=== PATIENT | male | born 1995 | race African-American/Black ===

== ENCOUNTER 2016-08-31 10:18 | Emergency (ER) | payer SELFPAY ==
[~2016-08-31] VITALS: Ht 170.2 cm; Wt 80.6 kg
[~2016-08-31 10:18] MED LIST: ASCORBIC ACID500 M3 PO; DOCUSATE SODIU100 MG PO; FOLIC ACID1 MG PO; HYDROCODON-ACE1 EAC7 PO; PANTOPRAZOLE SO40 MG PO; SENNA8.6 MG PO; THERAGRAN1 TABLET PO; TRIPLE ANTIB28.35 GM TP
[2016-08-31 11:25] LABS: EOSINOPHIL (%) 2.8 % (0-5); EOSINOPHIL COUNT 0.1 K/uL (0-0.3); HEMATOCRIT 50.7 % (38.0-50.0); IMMATURE GRANULOCYTE (%) 0.2 % (0.0-0.7); INSTRUMENT ABS NEUTROPHIL CT 2.9 K/uL; LYMPHOCYTE COUNT 1.5 K/uL (1.0-2.8); MCHC 34.1 G/DL (30.0-36.0); MEAN PLAT.VOLUME 9.8 uM^3 (9.0-12.4); MONOCYTE (%) 9.7 % (3-12); MONOCYTE COUNT 0.5 K/uL (0-0.8); NEUTROPHIL (%) 56.9 % (45-76); NEUTROPHIL COUNT 2.9 K/uL (1.8-6.4); PLATELET COUNT 214 K/uL (156-360); RBC DIS.WIDTH-CV 12.4 % (11.8-14.6); RBC DIS.WIDTH-SD 40.3 % (39-53); RED BLOOD COUNT 5.76 M/uL (4.00-5.50); WHITE BLOOD COUNT 5.1 K/uL (4.1-10.2)
[2016-08-31 11:39] LABS: CHLORIDE 103 mEq/L (99-109); POTASSIUM 4.2 mEq/L (3.7-5.4); SODIUM 139 mEq/L (136-147)
[2016-08-31 11:41] LABS: GLUCOSE 93 mg/dL (70-99)
[2016-08-31 11:42] LABS: ANION GAP 11 MEQ/L (2-14)
[2016-08-31 11:44] LABS: GFR ESTIMATE (CALCULATED) > 59 mL/min/; SERUM ETHYL ALCOHOL < 10 mg/dL
[2016-08-31 11:45] LABS: UREA NITROGEN (BUN) 15 mg/dL (9-23)
[2016-08-31] MEDS ORDERED: THIAMINE HCL100 MG PO (13:43)
[2016-08-31] MEDS ORDERED: MIRALAX17 GM PO (13:43)
[2016-08-31] MEDS ORDERED: LIBRIUM25 MG PO (13:43)
[2016-08-31 13:59] VITALS: BP 128/82
== END 2016-08-31 14:00 | disposition home or self-care (01) ==
LOC: EME 10:18
PROVIDERS: Emergency Medicine
DX: F32.9 Major depressive disorder, single episode, unspecified (principal); F41.9 Anxiety disorder, unspecified; F15.10 Other stimulant abuse, uncomplicated; F10.20 Alcohol dependence, uncomplicated; K59.00 Constipation, unspecified; J45.909 Unspecified asthma, uncomplicated; F17.200 Nicotine dependence, unspecified, uncomplicated
CPT/HCPCS: 80048; 81003; 85025; 90839; 99281; 99284; G0480